=== PATIENT | female | born 1990 | race Caucasian/White ===

== ENCOUNTER 2017-06-13 14:31 | Inpatient (IN) | payer BC ==
[2017-06-13] MEDS ORDERED: Ondansetron 4 MG/2 ML SDV IVPUSH PRN ×2 (15:25→21:00)
[2017-06-13] MEDS ORDERED: Sodium Chloride 0.9% 10 ML Syringe FLUSH PRN (15:25)
[2017-06-13] MEDS ORDERED: Nalbuphine 20 MG/1 ML Amp IVPUSH PRN (15:25)
--- NOTE | 2017-06-13 15:29 | PCM.LDHP ---
L&D History of Present Illness - General Date of Service: 06/13/17 Admit Problem/Dx: Patient Status Order with Admit Dx/Problem 06/13/17 15:25 Patient Status [ADT] Routine Admission Diagnosis/Problem Admission Diagnosis/Problem Normal labor Source of Information: Patient History Limitations: Reports: No Limitations - History of Present Illness Introduction:: Patient is a 26 y/o at 38 3/7 wks who presents to L&D for SROM. This occurred at about 1400 today. Doing well since. Some mild contractions. Getting good FM. Last notable for IOL at 35 weeks due to preeclampsia. No signs or symptoms today. 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 (See Below) (Hx of preeclampsia with severe features) : 2 Para: 1 LMP (Approximate): Social & Family History - Tobacco Use Smoking Status *Q: Former Smoker Years of Tobacco use: 2 Used Tobacco, but Quit: Yes Month Tobacco Last Used: 04/2014 Second Hand Smoke Exposure: No - Alcohol Use Alcohol Use History: No Days Per Week of Alcohol Use: 0 - Recreational Drug Use Recreational Drug Use: No Drug Use in Last 12 Months: No H&P Review of Systems - Review of Systems: Review Of Systems: See Below General: Reports: No Symptoms Pulmonary: Reports: No Symptoms Cardiovascular: Reports: No Symptoms Gastrointestinal: Reports: No Symptoms Genitourinary: Reports: No Symptoms Musculoskeletal: Reports: No Symptoms Neurological: Reports: No Symptoms L&D Exam - Exam Exam: See Below - OB Specific Contraction Intensity: Mild Movement: Active Heart Tones: Present Heart Tones per Min: 135 Heart Rate (FHR) Variability: Moderate (6-25 bmp) Presentation: Vertex (Per nursing exam) - Adhikari Score Adhikari Score Cervix Position: Posterior Adhikari Score Consistency: Soft Adhikari Score Effacement: 51-70% Adhikari Score Dilation: 3-4 cm Adhikari Score 's Station: -3 Adhikari Score Total: 6 - Exam General: Alert, Oriented, Cooperative Lungs: Clear to Auscultation, Normal Respiratory Effort Cardiovascular: Regular Rate, Regular Rhythm GI/Abdominal Exam: Soft, Non-Tender Genitourinary: Normal external exam Extremities: Normal Inspection Skin: Warm, Dry, Intact - Patient Data Result Diagrams: 06/13/17 15:40 - Problem List (1) 38 weeks gestation of SNOMED Code(s): 58288470 ICD Code: Z3A.38 - 38 WEEKS GESTATION OF Status: Acute Current Visit: Yes (2) Spontaneous rupture of membranes SNOMED Code(s): 439268378 ICD Code: [id number] - Status: Acute Current Visit: Yes (3) Gestational hypertension SNOMED Code(s): 45504621 ICD Code: O13.9 - GESTATIONAL HTN W/O SIGNIFICANT PROTEINURIA, UNSP TRIMESTER Status: Acute Current Visit: Yes Qualifiers: Trimester: third trimester Qualified Code(s): O13.3 - Gestational [ -induced] hypertension without significant proteinuria, third trimester Problem List Initiated/Reviewed/Updated: Yes Orders Last 24hrs: Active Orders 24 hr Category Date Time Status Patient Status [ADT] Routine ADT 06/13/17 15:25 Ordered Activity as Tolerated [RC] PFP Care 06/13/17 15:25 Ordered Communication Order [RC] ASDIRECTED Care 06/13/17 15:25 Ordered Heart Tones [RC] ASDIRECTED Care 06/13/17 15:26 Ordered Notify Provider [RC] PFP Care 06/13/17 15:25 Ordered Notify Provider [RC] PRN Care 06/13/17 15:25 Ordered Peripheral IV Care [RC] . DIRECTED Care 06/13/17 15:26 Ordered Vital Signs [RC] PER UNIT ROUTINE Care 06/13/17 15:25 Ordered Regular Diet [DIET] Diet 06/13/17 Lunch Ordered ALANINE AMINOTRANSFERASE,ALT [CHEM] Routine Lab 06/13/17 15:25 Ordered ASPARTATE AMNIOTRANSFERASE,AST [CHEM] Routine Lab 06/13/17 15:25 Ordered CBC W/O DIFF,HEMOGRAM [HEME] Routine Lab 06/13/17 15:25 Ordered CREATININE W/GFR [CHEM] Routine Lab 06/13/17 15:25 Ordered TYPE AND SCREEN [BBK] Routine Lab 06/13/17 15:25 Ordered Lactated Ringers [Ringers, Lactated] 1,000 ml Med 06/13/17 15:30 Ordered IV ASDIRECTED Nalbuphine [Nubain] Med 06/13/17 15:25 Ordered 10 mg IVPUSH Q2H PRN Ondansetron [Zofran] Med 06/13/17 15:25 Ordered 4 mg IVPUSH Q4H PRN Oxytocin/Lactated Ringers [Pitocin in LR 10 Units/1,000 Med 06/13/17 15:30 Ordered ML] 10 unit in 1,000 ml IV .CONTINUOUS Sodium Chloride 0.9% [Saline Flush] Med 06/13/17 15:25 Ordered 10 ml FLUSH ASDIRECTED PRN Electronic Heart Tones Ext w TOCO [WOMSER] Oth 06/13/17 15:25 Ordered Routine Electronic Heart Tones Internal [WOMSER] Per Unit Oth 06/13/17 15:25 Ordered Routine Peripheral IV Insertion Adult [OM.PC] Routine Oth 06/13/17 15:25 Ordered Resuscitation Status Routine Resus Stat 06/13/17 15:25 Ordered Medication Orders Lactated Ringer's (Ringers, Lactated) 1,000 mls @ 100 mls/hr IV ASDIRECTED KEVIN Oxytocin/Lactated Ringer's (Pitocin In Lr 10 Units/1,000 Ml) 10 unit in 1,000 mls @ 500 mls/hr IV .CONTINUOUS KEVIN Nalbuphine HCl (Nubain) 10 mg IVPUSH Q2H PRN PRN Reason: Pain (moderate 4-6) Ondansetron HCl (Zofran) 4 mg IVPUSH Q4H PRN PRN Reason: Nausea/Vomiting Sodium Chloride (Saline Flush) 10 ml FLUSH ASDIRECTED PRN PRN Reason: Keep Vein Open Assessment/Plan Comment:: 26 y/o at 38 3/7 wks presents with SROM * CBC, T&S * Also order AST, ALT, Creatinine as patient with consistently mild BP's. Will monitor closely for signs of severe disease * GBS negative, no need for antibiotics * Defer augmentation for now. If no painful contractions in the next few hours will add in pitocin * Pain management per patient preference * Anticipate
[2017-06-13] MEDS ORDERED: Oxytocin/Lactated Ringers 10 UNIT/1,000 ML BAG IV SCH (15:30)
[2017-06-13] MEDS: Lactated Ringers 1,000 ML IV SCH ×3 (18:44→22:45)
--- NOTE | 2017-06-13 19:58 | PCM.PNLD ---
Labor Progress Note - VS & Meds Vital Signs: Last Vital Signs Temp Pulse 86 06/13/17 16:48 Resp BP 136/89 06/13/17 16:48 Pulse Ox Active Medications: Current Medications Lactated Ringer's (Ringers, Lactated) 1,000 mls @ 100 mls/hr IV ASDIRECTED KEVIN Last Admin: 06/13/17 18:44 Dose: 100 mls/hr Oxytocin/Lactated Ringer's (Pitocin In Lr 10 Units/1,000 Ml) 10 unit in 1,000 mls @ 500 mls/hr IV .CONTINUOUS KEVIN Oxytocin 10 unit/ Lactated (Ringer's) 1,001 mls @ 12.01 mls/hr IV TITRATE KEVIN; 2 MUNITS/MIN PRN Reason: Protocol Last Admin: 06/13/17 18:50 Dose: 2 munits/min, 12.01 mls/hr Nalbuphine HCl (Nubain) 10 mg IVPUSH Q2H PRN PRN Reason: Pain (moderate 4-6) Ondansetron HCl (Zofran) 4 mg IVPUSH Q4H PRN PRN Reason: Nausea/Vomiting Sodium Chloride (Saline Flush) 10 ml FLUSH ASDIRECTED PRN PRN Reason: Keep Vein Open - Uterine Contractions Uterine Monitoring Mode: External [place] Contraction Intensity: Mild to Moderate Uterine Resting Tone: Soft - Monitoring Monitor Mode: External Ultrasound Heart Rate (FHR) Baseline: 135 Heart Rate (FHR) Variability: Moderate (6-25 bmp) Accelerations: Present, 15x15 Decelerations: None Strip Review: Category I - Labor Progress (Free Text) Labor Progress: Patient doing well. Wasn't feeling strong contractions and so pitocin started at 1850. Currently at 4. Continue per protocol.
[2017-06-13] MEDS ORDERED: Bupivacaine/fentaNYL/NS 100 ML Bag EPIDUR SCH (21:00)
[2017-06-13] MEDS ORDERED: fentaNYL 100 MCG/2 ML SDV EPIDUR PRN (21:00)
[2017-06-13] MEDS ORDERED: diphenhydrAMINE 50 MG/ML SDV IVPUSH PRN (21:00)
--- NOTE | 2017-06-13 21:45 | PCM.PREANE ---
Preanesthetic Assessment - Procedure Proposed Procedure: ROSS - Anesthesia/Transfusion/Family Hx Anesthesia History: Prior Anesthesia Reaction Family History of Anesthesia Reaction: No Transfusion History: No Prior Transfusion(s) Intubation History: Unknown - Review of Systems General: No Symptoms Pulmonary: No Symptoms Cardiovascular: No Symptoms Gastrointestinal: Other (GERD) Neurological: No Symptoms Other: Reports: Easy Bruising - Physical Assessment NPO Status Date: 06/13/17 NPO Status Time: 20:00 Pulse: 86 Blood Pressure: 136/89 Vital Signs: Last Vital Signs Temp Pulse 86 06/13/17 16:48 Resp BP 136/89 06/13/17 16:48 Pulse Ox Height: 1.83 m Weight: 85.275 kg ASA Class: 2 Mental Status: Alert & Oriented x3 Airway Class: Mallampati = 1 Dentition: Reports: Normal Dentition Thyro-Mental Finger Breadths: 3 Mouth Opening Finger Breadths: 3 ROM/Head Extension: Full Lungs: Clear to Auscultation, Normal Respiratory Effort Cardiovascular: Regular Rate, Regular Rhythm - Lab Values: Laboratory Last Values WBC 14.19 K/mm3 (3.98-10.04) H 06/13/17 15:40 RBC 4.09 M/mm3 (3.98-5.22) 06/13/17 15:40 Hgb 12.2 gm/L (11.2-15.7) 06/13/17 15:40 Hct 35.2 % (34.1-44.9) 06/13/17 15:40 MCV 86.1 fl (79.4-94.8) 06/13/17 15:40 MCH 29.8 pg (25.6-32.2) 06/13/17 15:40 MCHC 34.7 g/dl (32.2-35.5) 06/13/17 15:40 RDW Std Deviation 39.5 fL (36.4-46.3) 06/13/17 15:40 Plt Count 261 K/mm3 (182-369) 06/13/17 15:40 MPV 10.7 fl (9.4-12.3) 06/13/17 15:40 Creatinine 0.6 mg/dL (0.55-1.02) 06/13/17 15:40 Est Cr Clr Drug Dosing 165.40 mL/min 06/13/17 15:40 Estimated GFR (MDRD) > 60 mL/min (>60) 06/13/17 15:40 AST 21 U/L (15-37) 06/13/17 15:40 ALT 16 U/L (14-59) 06/13/17 15:40 Blood Type O POSITIVE 06/13/17 15:40 Gel Antibody Screen Negative 06/13/17 15:40 - Allergies Allergies/Adverse Reactions: Allergies Allergy/AdvReac Type Severity Reaction Status Date / Time No Known Allergies Allergy Verified 11/17/14 15:53 - Blood Blood Available: No Product(s) Available: None - Anesthesia Plan Pre-Op Medication Ordered: None - Acknowledgements Anesthesia Type Planned: Epidural Pt an Appropriate Candidate for the Planned Anesthesia: Yes Alternatives and Risks of Anesthesia Discussed w Pt/Guardian: Yes Pt/Guardian Understands and Agrees with Anesthesia Plan: Yes PreAnesthesia Questionnaire - Past Health History Medical/Surgical History: Denies 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: , 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 (See 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) (Hx of preeclampsia with severe features) - SUBSTANCE USE Smoking Status *Q: Former Smoker Second Hand Smoke Exposure: No Days Per Week of Alcohol Use: 0 Recreational Drug Use History: No Recreational Drug Type: Reports: Other (see below) - HOME MEDS Home Medications: Home Meds Ferrous Sulfate [Iron] 325 mg PO DAILY 11/18/14 [History] Folic Acid 1 mg PO DAILY 11/18/14 [History] [place]-3 Fatty Acids [[place]-3] 1,000 mg PO DAILY 11/18/14 [History] PNV95/Ferrous Fumarate/FA [ Multivitamins] 1 each PO DAILY 11/18/14 [ History] - CURRENT (IN HOUSE) MEDS Current Meds: Current Medications Diphenhydramine HCl (Benadryl) 25 mg IVPUSH Q6H PRN PRN Reason: Pruritis Fentanyl (Sublimaze) 100 mcg EPIDUR Q3H PRN PRN Reason: Pain Last Admin: 06/13/17 21:27 Dose: 100 mcg Fentanyl/Bupivacaine HCl (Fentanyl/Bupivacaine/Ns 2 Mcg-0.125% 100 Ml) 100 ml EPIDUR ASDIRECTED KEVIN Last Admin: 06/13/17 21:27 Dose: 100 ml Lactated Ringer's (Ringers, Lactated) 1,000 mls @ 100 mls/hr IV ASDIRECTED KEVIN Last Admin: 06/13/17 20:42 Dose: 100 mls/hr Oxytocin/Lactated Ringer's (Pitocin In Lr 10 Units/1,000 Ml) 10 unit in 1,000 mls @ 500 mls/hr IV .CONTINUOUS KEVIN Oxytocin 10 unit/ Lactated (Ringer's) 1,001 mls @ 12.01 mls/hr IV TITRATE KEVIN; 2 MUNITS/MIN PRN Reason: Protocol Last Admin: 06/13/17 18:50 Dose: 2 munits/min, 12.01 mls/hr Nalbuphine HCl (Nubain) 10 mg IVPUSH Q2H PRN PRN Reason: Pain (moderate 4-6) Ondansetron HCl (Zofran) 4 mg IVPUSH Q4H PRN PRN Reason: Nausea/Vomiting Ondansetron HCl (Zofran) 4 mg IVPUSH ONETIME PRN PRN Reason: Nausea/Vomiting Sodium Chloride (Saline Flush) 10 ml FLUSH ASDIRECTED PRN PRN Reason: Keep Vein Open
[2017-06-13] MEDS ORDERED: Bupivacaine 0.25% 10 ML SDV ONE (22:22)
--- NOTE | 2017-06-13 23:40 | PCM.DEL ---
L & D Note - General Info Date of Service: 06/13/17 - Delivery Note Labor: Augmented by Oxytocin Delivery Outcome: Livebirth Delivery Method: Spontaneous Vaginal Delivery-Single Delivery Mode: Spontaneous Presentation: Right Occiput Anterior (GAYATHRI) Nuchal Cord: None Anesthesia Type: Epidural Amniotic Fluid Description: Clear Episiotomy Type: None Laceration: None Placenta: Intact, Spontaneous Cord: 3 Vessels Estimated Blood Loss: 250 Resuscitation Needed: Yes : Bulb Syringe, Stimulated, Warmed, [place] Used Score 1 min: 8 Score 5 min: 9 Delivery Comments (Free Text/Narrative):: Patient found to be complete and began pushing. With maternal pushing effort head delivered from an GAYATHRI presentation. No nuchal cord present. With gentle downward traction the shoulders and body delivered. placed on maternal abdomen. Cord clamped and cut. Cord blood obtained. Inspection of the perineum showed no lacerations - Patient Data Vitals - Most Recent: Last Vital Signs Temp Pulse 86 06/13/17 21:44 Resp BP 136/89 06/13/17 21:44 Pulse Ox Weight - Most Recent: 85.275 kg Lab Results Last 24 Hours: Laboratory Results - last 24 hr 06/13/17 06/13/17 06/13/17 Range/Units 15:40 15:40 15:40 WBC 14.19 H (3.98-10.04) K/mm3 RBC 4.09 (3.98-5.22) M/mm3 Hgb 12.2 (11.2-15.7) gm/L Hct 35.2 (34.1-44.9) % MCV 86.1 (79.4-94.8) fl MCH 29.8 (25.6-32.2) pg MCHC 34.7 (32.2-35.5) g/dl RDW Std Deviation 39.5 (36.4-46.3) fL Plt Count 261 (182-369) K/mm3 MPV 10.7 (9.4-12.3) fl Creatinine 0.6 (0.55-1.02) mg/dL Est Cr Clr Drug Dosing 165.40 mL/min Estimated GFR (MDRD) > 60 (>60) mL/min AST 21 (15-37) U/L ALT 16 (14-59) U/L Blood Type O POSITIVE Gel Antibody Screen Negative Med Orders - Current: Current Medications Diphenhydramine HCl (Benadryl) 25 mg IVPUSH Q6H PRN PRN Reason: Pruritis Fentanyl (Sublimaze) 100 mcg EPIDUR Q3H PRN PRN Reason: Pain Last Admin: 06/13/17 21:27 Dose: 100 mcg Fentanyl/Bupivacaine HCl (Fentanyl/Bupivacaine/Ns 2 Mcg-0.125% 100 Ml) 100 ml EPIDUR ASDIRECTED KEVIN Last Admin: 06/13/17 21:27 Dose: 100 ml Lactated Ringer's (Ringers, Lactated) 1,000 mls @ 100 mls/hr IV ASDIRECTED KEVIN Last Admin: 06/13/17 22:45 Dose: 100 mls/hr Oxytocin/Lactated Ringer's (Pitocin In Lr 10 Units/1,000 Ml) 10 unit in 1,000 mls @ 500 mls/hr IV .CONTINUOUS KEVIN Oxytocin 10 unit/ Lactated (Ringer's) 1,001 mls @ 12.01 mls/hr IV TITRATE KEVIN; 2 MUNITS/MIN PRN Reason: Protocol Last Titration: 06/13/17 21:40 Dose: 6 munits/min, 36.03 mls/hr Nalbuphine HCl (Nubain) 10 mg IVPUSH Q2H PRN PRN Reason: Pain (moderate 4-6) Ondansetron HCl (Zofran) 4 mg IVPUSH Q4H PRN PRN Reason: Nausea/Vomiting Ondansetron HCl (Zofran) 4 mg IVPUSH ONETIME PRN PRN Reason: Nausea/Vomiting Sodium Chloride (Saline Flush) 10 ml FLUSH ASDIRECTED PRN PRN Reason: Keep Vein Open - Problem List & Annotations (1) 38 weeks gestation of SNOMED Code(s): 77696128 Code(s): Z3A.38 - 38 WEEKS GESTATION OF Status: Acute Current Visit: Yes (2) Spontaneous rupture of membranes SNOMED Code(s): 625135342 Code(s): VXW0463 - Status: Acute Current Visit: Yes (3) Gestational hypertension SNOMED Code(s): 15386819 Code(s): O13.9 - GESTATIONAL HTN W/O SIGNIFICANT PROTEINURIA, UNSP TRIMESTER Status: Acute Current Visit: Yes Qualifiers: Trimester: third trimester Qualified Code(s): O13.3 - Gestational [ -induced] hypertension without significant proteinuria, third trimester (4) Vaginal delivery SNOMED Code(s): 068115924 Code(s): O80 - ENCOUNTER FOR FULL-TERM UNCOMPLICATED DELIVERY Status: Acute Current Visit: Yes - Problem List Review Problem List Initiated/Reviewed/Updated: Yes - My Orders Last 24 Hours: My Active Orders 06/13/17 15:25 Patient Status [ADT] Routine Activity as Tolerated [RC] PFP Communication Order [RC] ASDIRECTED Notify Provider [RC] PFP Notify Provider [RC] PRN Vital Signs [RC] PER UNIT ROUTINE Nalbuphine [Nubain] 10 mg IVPUSH Q2H PRN Ondansetron [Zofran] 4 mg IVPUSH Q4H PRN Sodium Chloride 0.9% [Saline Flush] 10 ml FLUSH ASDIRECTED PRN Electronic Heart Tones Ext w TOCO [WOMSER] Routine Electronic Heart Tones Internal [WOMSER] Per Unit Routine Peripheral IV Insertion Adult [OM.PC] Routine Resuscitation Status Routine 06/13/17 15:26 Peripheral IV Care [RC] . DIRECTED 06/13/17 15:30 Lactated Ringers [Ringers, Lactated] 1,000 ml IV ASDIRECTED Oxytocin/Lactated Ringers [Pitocin in LR 10 Units/1,000 ML] 10 unit in 1,000 ml IV .CONTINUOUS 06/13/17 18:50 Oxytocin [Pitocin] 10 unit Lactated Ringers [Ringers, Lactated] 1,000 ml IV TITRATE 06/13/17 Lunch Regular Diet [DIET] - Assessment Assessment:: 26 y/o G2 now P1102 PPD#1 from at 38 3/7 wks - Plan Plan:: * Routine cares * Breast feeding * BP's all normal since delivery * Patient prefer discharge home today at 24 hours which seems reasonable
[2017-06-14] MEDS ORDERED: Docusate Sodium 100 MG Cap PO PRN (00:01)
[2017-06-14] MEDS ORDERED: Lanolin 100% Cream 7 GM Tube TOP PRN (00:01)
[2017-06-14] MEDS ORDERED: Witch Hazel Medicated Pads 100/Jar TOP PRN (00:01)
[2017-06-14] MEDS ORDERED: Acetaminophen 325 MG Tab PO PRN (00:01)
[2017-06-14] MEDS ORDERED: Benzocaine/Menthol 20%-0.5% Spray 56 GM Canister TOP PRN (00:01)
[2017-06-14] MEDS: Ibuprofen 600 MG Tab PO PRN ×2 (07:54→15:39)
--- NOTE | 2017-06-14 08:24 | PCM.DCSUM1 ---
Discharge Summary - Discharge Data Discharge Date: 06/14/17 Discharge Disposition: Home, Self-Care 01 Condition: Good - Discharge Diagnosis/Problem(s) (1) 38 weeks gestation of SNOMED Code(s): 25530317 ICD Code: Z3A.38 - 38 WEEKS GESTATION OF Status: Acute Current Visit: Yes (2) Spontaneous rupture of membranes SNOMED Code(s): 545985116 ICD Code: [id number] - Status: Acute Current Visit: Yes (3) Gestational hypertension SNOMED Code(s): 04537503 ICD Code: O13.9 - GESTATIONAL HTN W/O SIGNIFICANT PROTEINURIA, UNSP TRIMESTER Status: Acute Current Visit: Yes Qualifiers: Trimester: third trimester Qualified Code(s): O13.3 - Gestational [ -induced] hypertension without significant proteinuria, third trimester (4) Vaginal delivery SNOMED Code(s): 354731468 ICD Code: O80 - ENCOUNTER FOR FULL-TERM UNCOMPLICATED DELIVERY Status: Acute Current Visit: Yes - Patient Summary/Data Complications: None Consults: None Recommended Follow-up Testing/Procedures: Follow up with Dr. Rios in 2 weeks Hospital Course: 26 y/o admitted at 38 3/7 wks. Pitocin eventually started for augmentation. She then progressed rapidly to complete dilation. She underwent an uncomplicated . See delivery note. Initially with some mild range BP's, but all normal after delivery. She requested discharge home on PPD#1. - Patient Instructions Diet: Regular Diet as Tolerated Activity: As Tolerated Activity, Other: Pelvic Rest for 6 weeks Driving: May Drive Today Showering/Bathing: May Shower Showering/Bathing, Other: May bathe Notify Provider of: Fever, Increased Pain, Swelling and Redness, Drainage, Nausea and/or Vomiting - Discharge Plan Home Medications: Home Meds [place]-3 Fatty Acids [[place]-3] 1,000 mg PO DAILY 11/18/14 [History] PNV95/Ferrous Fumarate/FA [ Multivitamins] 1 each PO DAILY 11/18/14 [ History] Docusate Sodium [Colace] 100 mg PO BID PRN cap 06/14/17 [Rx] Ibuprofen [IJD: Ibuprofen] 600 mg PO Q6H PRN tablet 06/14/17 [Rx] Patient Handouts: Vaginal Delivery, Care After Referrals: Isaac Rios MD [Primary Care Provider] - (2 weeks for check ) - Discharge Summary/Plan Comment DC Time >30 min.: No - Patient Data Vitals - Most Recent: Last Vital Signs Temp 36.8 C 06/14/17 04:00 Pulse 76 06/14/17 03:39 Resp 18 06/14/17 03:39 BP 132/64 06/14/17 03:39 Pulse Ox 98 06/14/17 03:39 Weight - Most Recent: 85.275 kg I&O - Last 24 hours: Intake & Output 06/13/17 06/14/17 06/14/17 22:59 06:59 14:59 Intake Total 3000 Balance 3000 Lab Results - Last 24 hrs: Laboratory Results - last 24 hr 06/13/17 06/13/17 06/13/17 Range/Units 15:40 15:40 15:40 WBC 14.19 H (3.98-10.04) K/mm3 RBC 4.09 (3.98-5.22) M/mm3 Hgb 12.2 (11.2-15.7) gm/L Hct 35.2 (34.1-44.9) % MCV 86.1 (79.4-94.8) fl MCH 29.8 (25.6-32.2) pg MCHC 34.7 (32.2-35.5) g/dl RDW Std Deviation 39.5 (36.4-46.3) fL Plt Count 261 (182-369) K/mm3 MPV 10.7 (9.4-12.3) fl Creatinine 0.6 (0.55-1.02) mg/dL Est Cr Clr Drug Dosing 165.40 mL/min Estimated GFR (MDRD) > 60 (>60) mL/min AST 21 (15-37) U/L ALT 16 (14-59) U/L Blood Type O POSITIVE Gel Antibody Screen Negative Med Orders - Current: Current Medications Acetaminophen (Tylenol) 650 mg PO Q4H PRN PRN Reason: mild pain or fever Benzocaine/Menthol (Dermoplast Pain Relief [place]) 0 gm TOP ASDIRECTED PRN PRN Reason: Perineal Comfort Measure Docusate Sodium (Colace) 100 mg PO BID PRN PRN Reason: Constipation Emollient Ointment (Lansinoh Hpa) 0 gm TOP ASDIRECTED PRN PRN Reason: Sore Nipples Ibuprofen (Motrin) 600 mg PO Q6H PRN PRN Reason: Mild pain or fever Last Admin: 06/14/17 07:54 Dose: 600 mg Witch Suzanne (Tucks) 1 pad TOP ASDIRECTED PRN PRN Reason: Hemorrhoid pain Discontinued Medications Diphenhydramine HCl (Benadryl) 25 mg IVPUSH Q6H PRN PRN Reason: Pruritis Fentanyl (Sublimaze) 100 mcg EPIDUR Q3H PRN PRN Reason: Pain Last Admin: 06/13/17 21:27 Dose: 100 mcg Fentanyl/Bupivacaine HCl (Fentanyl/Bupivacaine/Ns 2 Mcg-0.125% 100 Ml) 100 ml EPIDUR ASDIRECTED KEVIN Last Admin: 06/13/17 21:27 Dose: 100 ml Lactated Ringer's (Ringers, Lactated) 1,000 mls @ 100 mls/hr IV ASDIRECTED KEVIN Last Admin: 06/13/17 22:45 Dose: 100 mls/hr Oxytocin/Lactated Ringer's (Pitocin In Lr 10 Units/1,000 Ml) 10 unit in 1,000 mls @ 500 mls/hr IV .CONTINUOUS KEVIN Oxytocin 10 unit/ Lactated (Ringer's) 1,001 mls @ 12.01 mls/hr IV TITRATE KEVIN; 2 MUNITS/MIN PRN Reason: Protocol Last Titration: 06/13/17 21:40 Dose: 6 munits/min, 36.03 mls/hr Nalbuphine HCl (Nubain) 10 mg IVPUSH Q2H PRN PRN Reason: Pain (moderate 4-6) Ondansetron HCl (Zofran) 4 mg IVPUSH Q4H PRN PRN Reason: Nausea/Vomiting Ondansetron HCl (Zofran) 4 mg IVPUSH ONETIME PRN PRN Reason: Nausea/Vomiting Sodium Chloride (Saline Flush) 10 ml FLUSH ASDIRECTED PRN PRN Reason: Keep Vein Open *Q Meaningful Use (DIS) - VTE *Q VTE Criteria *Q: - Stroke *Q Stroke Criteria *Q: - AMI *Q AMI Criteria *Q:
--- NOTE | 2017-06-14 12:21 | PCM.PNPP ---
- General Info Date of Service: 06/14/17 Functional Status: Reports: Pain Controlled, Tolerating Diet, Ambulating, Urinating - Review of Systems General: Reports: No Symptoms Pulmonary: Reports: No Symptoms Cardiovascular: Reports: No Symptoms Gastrointestinal: Reports: No Symptoms Genitourinary: Reports: No Symptoms - Patient Data Vital Signs - Most Recent: Last Vital Signs Temp 36.8 C 06/14/17 04:00 Pulse 76 06/14/17 03:39 Resp 18 06/14/17 03:39 BP 132/64 06/14/17 03:39 Pulse Ox 98 06/14/17 03:39 Weight - Most Recent: 85.275 kg I&O - Last 24 Hours: Intake & Output 06/13/17 06/14/17 06/14/17 22:59 06:59 14:59 Intake Total 3000 Balance 3000 Lab Results - Last 24 Hours: Laboratory Results - last 24 hr 06/13/17 06/13/17 06/13/17 Range/Units 15:40 15:40 15:40 WBC 14.19 H (3.98-10.04) K/mm3 RBC 4.09 (3.98-5.22) M/mm3 Hgb 12.2 (11.2-15.7) gm/L Hct 35.2 (34.1-44.9) % MCV 86.1 (79.4-94.8) fl MCH 29.8 (25.6-32.2) pg MCHC 34.7 (32.2-35.5) g/dl RDW Std Deviation 39.5 (36.4-46.3) fL Plt Count 261 (182-369) K/mm3 MPV 10.7 (9.4-12.3) fl Creatinine 0.6 (0.55-1.02) mg/dL Est Cr Clr Drug Dosing 165.40 mL/min Estimated GFR (MDRD) > 60 (>60) mL/min AST 21 (15-37) U/L ALT 16 (14-59) U/L Blood Type O POSITIVE Gel Antibody Screen Negative Med Orders - Current: Current Medications Acetaminophen (Tylenol) 650 mg PO Q4H PRN PRN Reason: mild pain or fever Benzocaine/Menthol (Dermoplast Pain Relief [place]) 0 gm TOP ASDIRECTED PRN PRN Reason: Perineal Comfort Measure Docusate Sodium (Colace) 100 mg PO BID PRN PRN Reason: Constipation Emollient Ointment (Lansinoh Hpa) 0 gm TOP ASDIRECTED PRN PRN Reason: Sore Nipples Ibuprofen (Motrin) 600 mg PO Q6H PRN PRN Reason: Mild pain or fever Last Admin: 06/14/17 07:54 Dose: 600 mg Witch Suzanne (Tucks) 1 pad TOP ASDIRECTED PRN PRN Reason: Hemorrhoid pain Discontinued Medications Diphenhydramine HCl (Benadryl) 25 mg IVPUSH Q6H PRN PRN Reason: Pruritis Fentanyl (Sublimaze) 100 mcg EPIDUR Q3H PRN PRN Reason: Pain Last Admin: 06/13/17 21:27 Dose: 100 mcg Fentanyl/Bupivacaine HCl (Fentanyl/Bupivacaine/Ns 2 Mcg-0.125% 100 Ml) 100 ml EPIDUR ASDIRECTED KEVIN Last Admin: 06/13/17 21:27 Dose: 100 ml Lactated Ringer's (Ringers, Lactated) 1,000 mls @ 100 mls/hr IV ASDIRECTED KEVIN Last Admin: 06/13/17 22:45 Dose: 100 mls/hr Oxytocin/Lactated Ringer's (Pitocin In Lr 10 Units/1,000 Ml) 10 unit in 1,000 mls @ 500 mls/hr IV .CONTINUOUS KEVIN Oxytocin 10 unit/ Lactated (Ringer's) 1,001 mls @ 12.01 mls/hr IV TITRATE KEVIN; 2 MUNITS/MIN PRN Reason: Protocol Last Titration: 06/13/17 21:40 Dose: 6 munits/min, 36.03 mls/hr Nalbuphine HCl (Nubain) 10 mg IVPUSH Q2H PRN PRN Reason: Pain (moderate 4-6) Ondansetron HCl (Zofran) 4 mg IVPUSH Q4H PRN PRN Reason: Nausea/Vomiting Ondansetron HCl (Zofran) 4 mg IVPUSH ONETIME PRN PRN Reason: Nausea/Vomiting Sodium Chloride (Saline Flush) 10 ml FLUSH ASDIRECTED PRN PRN Reason: Keep Vein Open - Infant Interaction Infant Disposition, : in Room with Family Interaction: Holding Infant Feeding: Breastfed ; Nursed Well Support Person: - Recovery Exam Fundal Tone: Firm Fundal Level: 1 Fingerbreadths Below Umbilicus Fundal Placement: Midline Lochia Amount: Small, Moderate Lochia Color: Rubra/Red Perineum Description: Intact, Minimal Bruising/Swelling Episiotomy/Laceration: None Bladder Status: Voiding - Exam General: Alert, Oriented, Cooperative GI/Abdominal Exam: Soft, Non-Tender Extremities: Normal Inspection Skin: Warm, Dry, Intact - Problem List & Annotations (1) 38 weeks gestation of SNOMED Code(s): 95083298 Code(s): Z3A.38 - 38 WEEKS GESTATION OF Status: Acute Current Visit: Yes (2) Spontaneous rupture of membranes SNOMED Code(s): 815109183 Code(s): GAF8548 - Status: Acute Current Visit: Yes (3) Gestational hypertension SNOMED Code(s): 67827493 Code(s): O13.9 - GESTATIONAL HTN W/O SIGNIFICANT PROTEINURIA, UNSP TRIMESTER Status: Acute Current Visit: Yes Qualifiers: Trimester: third trimester Qualified Code(s): O13.3 - Gestational [ -induced] hypertension without significant proteinuria, third trimester (4) Vaginal delivery SNOMED Code(s): 880894107 Code(s): O80 - ENCOUNTER FOR FULL-TERM UNCOMPLICATED DELIVERY Status: Acute Current Visit: Yes - Problem List Review Problem List Initiated/Reviewed/Updated: Yes - My Orders Last 24 Hours: My Active Orders 06/13/17 15:25 Vital Signs [RC] PER UNIT ROUTINE Resuscitation Status Routine 06/13/17 15:26 Peripheral IV Care [RC] . DIRECTED 06/14/17 00:01 Activity as Tolerated [RC] PER UNIT ROUTINE Vital Signs [RC] 04,12,20 Acetaminophen [Tylenol] 650 mg PO Q4H PRN Benzocaine/Menthol [Dermoplast Pain Relief [place]] See Dose Instructions TOP ASDIRECTED PRN Docusate Sodium [Colace] 100 mg PO BID PRN Ibuprofen [Motrin] 600 mg PO Q6H PRN Lanolin [Lansinoh HPA] See Dose Instructions TOP ASDIRECTED PRN Witch Suzanne [Tucks] 1 pad TOP ASDIRECTED PRN Assess Lochia [WOMSER] Per Unit Routine Assess Uterine Involution [WOMSER] Per Unit Routine Breast Pump [WOMSER] Per Unit Routine Heat Therapy [OM.PC] PRN Perineal Care [OM.PC] Per Unit Routine Peripheral IV Discontinue [OM.PC] Routine Sitz Bath [OM.PC] Per Unit Routine 06/14/17 08:24 Ready for Discharge [RC] PER UNIT ROUTINE 06/14/17 Breakfast Regular Diet [DIET] 06/15/17 00:01 Heat Therapy [OM.PC] PRN - Assessment Assessment:: 26 y/o G2 now P1102 PPD#1 from at 38 3/7 wks - Plan Plan:: * Routine cares * Breast feeding * BP's all normal since delivery * Patient prefer discharge home today at 24 hours which seems reasonable
--- NOTE | 2017-06-14 13:56 | PCM48HPAN ---
Post Anesthesia Note - EVALUATION WITHIN 48HRS OF ANESTHETIC Vital Signs in Normal Range: Yes Patient Participated in Evaluation: Yes Respiratory Function Stable: Yes Airway Patent: Yes Cardiovascular Function Stable: Yes Hydration Status Stable: Yes Pain Control Satisfactory: Yes Nausea and Vomiting Control Satisfactory: Yes Mental Status Recovered: Yes - COMMENTS/OBSERVATIONS Free Text/Narrative:: Patient denies any headaches, residual numbness/tingling to LE, or back pain. Doing well resting in bed.
[2017-06-14 19:59] VITALS: BP 123/82
== END 2017-06-14 23:50 | disposition home or self-care (01) | DRG 560 ==
LOC: JD.OB 14:31 → JD.OBCHECK 14:31 → JD.OB 15:25 → JD.OBCHECK 15:30 → JD.OB 23:27 → OBSVTOIN 23:27
PROVIDERS: ADMIT Obstetrics & Gynecology; ATTEND Obstetrics & Gynecology
PROC: 10E0XZZ Delivery of Products of Conception, External Approach (ICD-10-PCS; principal; 2017-06-13)
PROC: 00HU33Z Insertion of Infusion Device into Spinal Canal, Percutaneous Approach (ICD-10-PCS; 2017-06-13)
PROC: 3E0R3BZ Introduction of Anesthetic Agent into Spinal Canal, Percutaneous Approach (ICD-10-PCS; 2017-06-13)
DX: O42.02 Full-term premature rupture of membranes, onset of labor within 24 hours of rupture (principal); O13.4 Gestational [pregnancy-induced] hypertension without significant proteinuria, complicating childbirth; Z3A.38 38 weeks gestation of pregnancy; Z37.0 Single live birth; Z87.891 Personal history of nicotine dependence
CPT/HCPCS: 36415; 51702; 59409; 82565; 84450; 84460; 85027; 86850; 86900; 86901; A9270-GY; J2590; J3010; J7120

== ENCOUNTER 2024-01-08 10:40 | Inpatient (IN) | payer BC ==
[2024-01-08] MEDS: fentaNYL 100 MCG/2 ML SDV IVPUSH ONE (10:54)
[2024-01-08] MEDS: Oxytocin/Lactated Ringers 30 UNIT/500 ML BAG IV SCH (11:05)
[2024-01-08 11:07] LABS: HEMATOCRIT 29.3 % (37.0-47.0); HEMOGLOBIN 10.1 gm/dl (12.0-16.0); MEAN CORPUSCULAR HEMOGLOBIN 30.1 pg (28.0-32.0); MEAN CORPUSCULAR HGB CONC 34.5 g/dl (32.0-36.0); MEAN CORPUSCULAR VOLUME 87.5 fl (83.0-99.0); MEAN PLATELET VOLUME 10.4 fl (9.4-12.3); PLATELET COUNT,PLT 213 K/mm3 (150-400); RED BLOOD CELL COUNT 3.35 M/mm3 (4.10-5.30); WHITE BLOOD CELL COUNT,WBC 19.92 K/mm3 (3.9-11.3)
[2024-01-08] MEDS ORDERED: Witch Hazel Medicated Pads 40/Jar TOP PRN (11:08)
[2024-01-08] MEDS ORDERED: Acetaminophen 325 MG Tab PO PRN (11:08)
[2024-01-08] MEDS ORDERED: Benzocaine/Menthol 20%-0.5% Spray 78 GM Cannister TOP PRN (11:08)
[2024-01-08 11:16] LABS: APPEARANCE,URINE SLT CLOUDY (Clear); BILIRUBIN,URINE NEGATIVE (Negative); COLOR,URINE YELLOW (Yellow); GLUCOSE,URINE NEGATIVE (Negative); KETONES,URINE NEGATIVE (Negative); LEUKOCYTE ESTERASE,URINE TRACE (Negative); NITRITE,URINE NEGATIVE (Negative); OCCULT BLOOD,URINE NEGATIVE (Negative); PH,URINE 7.5 (5.0-8.0); PROTEIN,URINE NEGATIVE (Negative)
[2024-01-08 11:25] LABS: AMPHETAMINES SCREEN, URINE PRESUMPTIVE POSITIVE (CUTOFF=500); BARBITURATE SCREEN,URINE NEGATIVE (CUTOFF=200); BENZODIAZEPINES SCREEN,URINE NEGATIVE (CUTOFF=150); METHAMPHETAMINES SCREEN, URINE PRESUMPTIVE POSITIVE (CUTOFF=500)
[2024-01-08 11:26] LABS: BUPRENORPHINE SCREEN,URINE NEGATIVE (CUTOFF=10); METHADONE SCREEN, URINE NEGATIVE (CUTOFF=200); OXYCODONE SCREEN,URINE NEGATIVE (CUT0FF=100); THC SCREEN,URINE 20 NG/ML NEGATIVE (CUTOFF=50)
[2024-01-08 11:39] LABS: HEPATITIS C AB NON-REACTIVE (Non-React)
[2024-01-08 11:51] LABS: RBC,URINE 0-5 /hpf (0-5)
[2024-01-08 11:52] LABS: BACTERIA,URINE MANY /hpf (FEW); MUCUS,URINE FEW /hpf (FEW)
[2024-01-08] MEDS: cefOXitin 2 GM in Sodium Chloride 0.9% 50 ML IV ONE (12:07)
[2024-01-08] MEDS: Ibuprofen 600 MG Tab PO SCH (12:12)
[2024-01-08 16:58] VITALS: BP 139/81; PULSE 105
[2024-01-08 19:38] LABS: RAPID PLASMA REAGIN,RPR NON-REACTIVE (NONREACTIVE)
[2024-01-09 07:56] LABS: GROUP B STREP BY PCR POSITIVE (NEGATIVE)
[2024-01-10 09:41] LABS: HCV AB BY CIA INTERP Negative (Negative); HEPC AB BY CIA INDEX 0.03 IV
[2024-01-10 10:47] LABS: HEP B SURFACE AG Negative (Negative)
== END 2024-01-09 14:15 | disposition home or self-care (01) | DRG 776 ==
LOC: EEVIPCON 10:40 → JD.OB 10:40
PROVIDERS: ADMIT Obstetrics & Gynecology; ATTEND Obstetrics & Gynecology
DX: Z39.0 Encounter for care and examination of mother immediately after delivery (principal); O99.325 Drug use complicating the puerperium; F15.90 Other stimulant use, unspecified, uncomplicated
CPT/HCPCS: 36415; 51701; 80306; 81001; 85027; 86592; 86762; 86803; 86850; 86900; 86901; 87086; 87088; 87186; 87340; 87653; A9270-GY; J0694; J3010; J3490; J7999